=== PATIENT | female | born 1985 | race Two or more races ===

== ENCOUNTER 2024-09-01 13:28 | Emergency (ER) | payer SELFPAY ==
[2024-09-01 13:46] VITALS: BP 110/80; PULSE 116; PULSE 58; RESP 18; RESP 20; TEMP 36.7; O2SAT 96; O2SAT 98
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
== END 2024-09-01 14:00 | disposition left against medical advice (07) ==
PROVIDERS: Emergency Provider Emergency Medicine
DX: R07.9 Chest pain, unspecified (principal); Y09 Assault by unspecified means; Z53.29 Procedure and treatment not carried out because of patient's decision for other reasons
CPT/HCPCS: 99281